=== PATIENT | female | born 1980 | race Caucasian/White ===

== ENCOUNTER 2025-07-08 17:33 | Inpatient (IN) ==
[2025-07-08] MEDS ORDERED: IOPAMIDOL 100 ML BOTTLE IV ONE (17:34)
[2025-07-08 19:02] LABS: Basophils # (Auto) 0.01 K/mcL (0.00-0.30); Basophils % (Auto) 0.1 % (0.0-2.0); Eosinophils # (Auto) 0.03 K/mcL (0.00-0.70); Eosinophils % (Auto) 0.2 % (0.0-7.0); Hematocrit 39.9 % (34.1-44.9); Hemoglobin 13.3 g/dL (11.2-15.7); Lymphocytes # (Auto) 1.10 K/mcL (1.50-4.80); Lymphocytes % (Auto) 7.1 % (15.5-49.0); Mean Corpuscular HGB Conc 33.3 g/dL (31.0-36.0); Monocytes # (Auto) 1.66 K/mcL (0.10-0.90); Monocytes % (Auto) 10.7 % (1.0-12.0); Neutrophils % (Auto) 81.7 % (38.0-78.0); Platelet Count 292 K/mcL (140-440); RBC 4.25 M/mcL (3.59-5.38); WBC 15.5 K/mcL (4.5-11.0)
[2025-07-08 19:05] LABS: INR 1.1 (0.9-1.1); Prothrombin Time 14.8 sec (11.9-14.5)
[2025-07-08 19:16] LABS: ALT/SGPT 63 U/L (<40); AST/SGOT 59 U/L (<32); Albumin 3.5 gm/dL (3.2-5.2); Albumin/Globulin Ratio 1.2 (1.0-2.3); Alkaline Phosphatase 119 U/L (39-117); Anion Gap 13.0 (8.0-16.0); Bilirubin,Total 0.2 mg/dL (0.1-1.0); Blood Urea Nitrogen 13 mg/dL (6-20); Calcium 8.6 mg/dL (8.6-10.4); Carbon Dioxide 19 mmol/L (22-30); Chloride 98 mmol/L (96-108); Globulin 3.0 gm/dL (2.2-3.7); Glucose 96 mg/dL (70-105); Potassium 4.3 mmol/L (3.3-5.1); Sodium 130 mmol/L (133-145)
[2025-07-08 19:32] LABS: Bacteria,Urine 0 /hpf (0); Bilirubin,Urine NEGATIVE (Negative); Color,Urine DK. ORANGE; Ketones,Urine Color Interference mg/dL (Negative); Leukocyte Esterase,Urine Color Interference /uL (Negative); PH,Urine 6.5 (5.0-9.0); Protein,Urine Color Interference mg/dL (Negative); Specific Gravity,Urine 1.010 (1.000-1.035); Urine Budding Yeast Few /hpf
[2025-07-08] MEDS: ACETAMINOPHEN 325 MG TABLET PO ONE (19:35)
[2025-07-08] MEDS: IBUPROFEN 600 MG TABLET PO ONE (20:15)
[2025-07-08] MEDS: PIPERACILLIN SODIUM/TAZOBACTAM 3.375 GM in DEXTROSE 5% IN WATER 50 ML IV ONE (20:16)
[2025-07-08] MEDS: VANCOMYCIN 1,500 MG in 0.9 % SODIUM CHLORIDE 500 ML IV ONE (20:52)
[2025-07-08] MEDS ORDERED: ACETAMINOPHEN 1,000 MG/100 ML BAG IV PRN (21:01)
[2025-07-08] MEDS ORDERED: VANCOMYCIN PER PHARMACY IV SCH (21:15)
[2025-07-08 21:26] LABS: C-Reactive Protein 18.40 mg/dL (0.03-0.80)
[2025-07-08 21:39] LABS: Bilirubin,Urine NEGATIVE (Negative); Color,Urine DK. ORANGE; Glucose,Urine (UA) NEGATIVE (Negative); Ketones,Urine NEGATIVE (Negative); Leukocyte Esterase,Urine NEGATIVE /uL (Negative); PH,Urine 6.5 (5.0-9.0); Protein,Urine NEGATIVE (Negative); Specific Gravity,Urine <= 1.005 (1.000-1.035); Urine Budding Yeast Few /hpf; Urobilinogen,Urine 1.0 mg/dL
[2025-07-08] MEDS: PIPERACILLIN SODIUM/TAZOBACTAM 4.5 GM in DEXTROSE 5% IN WATER 100 ML IV SCH (21:59)
[2025-07-08] MEDS: CEFEPIME 2 GM VIAL IV SCH (22:00)
[2025-07-08] MEDS ORDERED: ZOLPIDEM 5 MG TABLET PO PRN (22:21)
[2025-07-08] MEDS ORDERED: ONDANSETRON 4 MG/2 ML VIAL IV PRN (22:21)
[2025-07-08 23:11] LABS: Thyroid Stimulating Hormone 2.64 uIU/mL (0.27-5.01)
[2025-07-08] MEDS: LACTATED RINGERS 1,000 ML IV SCH (23:25)
[2025-07-08] MEDS: 0.9 % SODIUM CHLORIDE 10 ML SYRINGE IV SCH (23:28)
[2025-07-09 06:55] LABS: Basophils # (Auto) 0.03 K/mcL (0.00-0.30); Basophils % (Auto) 0.3 % (0.0-2.0); Eosinophils # (Auto) 0.20 K/mcL (0.00-0.70); Eosinophils % (Auto) 1.7 % (0.0-7.0); Hematocrit 40.3 % (34.1-44.9); Hemoglobin 13.1 g/dL (11.2-15.7); Lymphocytes # (Auto) 1.88 K/mcL (1.50-4.80); Lymphocytes % (Auto) 16.4 % (15.5-49.0); Mean Corpuscular HGB Conc 32.5 g/dL (31.0-36.0); Monocytes # (Auto) 1.54 K/mcL (0.10-0.90); Monocytes % (Auto) 13.5 % (1.0-12.0); Neutrophils % (Auto) 67.8 % (38.0-78.0); Platelet Count 293 K/mcL (140-440); RBC 4.20 M/mcL (3.59-5.38); WBC 11.4 K/mcL (4.5-11.0)
[2025-07-09 07:07] LABS: ALT/SGPT 51 U/L (<40); AST/SGOT 36 U/L (<32); Albumin 3.3 gm/dL (3.2-5.2); Albumin/Globulin Ratio 1.1 (1.0-2.3); Alkaline Phosphatase 111 U/L (39-117); Anion Gap 13.0 (8.0-16.0); Bilirubin,Direct < 0.2 mg/dL (0-0.3); Bilirubin,Total 0.2 mg/dL (0.1-1.0); Blood Urea Nitrogen 9 mg/dL (6-20); Calcium 8.3 mg/dL (8.6-10.4); Carbon Dioxide 20 mmol/L (22-30); Chloride 105 mmol/L (96-108); Globulin 3.1 gm/dL (2.2-3.7); Glucose 84 mg/dL (70-105); Phosphorous 2.4 mg/dL (2.5-4.5); Potassium 3.8 mmol/L (3.3-5.1); Sodium 138 mmol/L (133-145); Triglycerides 115 mg/dL (<150); Uric Acid 3.0 mg/dL (2.5-8.0)
[2025-07-09 07:27] LABS: C-Reactive Protein 16.10 mg/dL (0.03-0.80)
[2025-07-09] MEDS ORDERED: ACETAMINOPHEN 500 MG TABLET PO PRN (07:38)
[2025-07-09] MEDS: LEVOTHYROXINE 75 MCG TABLET PO SCH (08:19)
[2025-07-09] MEDS: DOCUSATE SODIUM 100 MG CAPSULE PO SCH (08:20)
[2025-07-09] MEDS: ENOXAPARIN 40 MG/0.4 ML SYRINGE SQ SCH (08:20)
[2025-07-09] MEDS: POLYETHYLENE GLYCOL 3350 17 GM PACKET PO SCH (08:20)
[2025-07-09] MEDS ORDERED: ALTEPLASE 2 MG VIAL IV PRN (10:00)
[2025-07-09] MEDS: VANCOMYCIN 1,500 MG in 0.9 % SODIUM CHLORIDE 500 ML IV SCH (10:25)
[2025-07-09] MEDS: NEUTRA PHOS 1 PACKET PO ONE (11:30)
[2025-07-09] MEDS ORDERED: HEPARIN 500 UNIT/5 ML SYRINGE IV ONE (12:49)
[2025-07-09] MEDS ORDERED: LIDOCAINE 1% 20 ML VIAL SQ ONE (12:49)
[2025-07-09] MEDS: PIPERACILLIN SODIUM/TAZOBACTAM 4.5 GM in DEXTROSE 5% IN WATER 100 ML IV SCH (15:59)
[2025-07-09] MEDS: SENNOSIDES 1 TABLET PO SCH (19:02)
[2025-07-09] MEDS: HEPARIN 10 UNITS/ML 5ML FLUSH IV SCH ×2 (19:03→22:25)
[2025-07-09] MEDS: IBUPROFEN 800 MG TABLET PO PRN (19:07)
[2025-07-09] MEDS: MELATONIN 3 MG TABLET PO PRN (19:07)
[2025-07-09] MEDS: 0.9 % SODIUM CHLORIDE 10 ML SYRINGE IV SCH (22:26)
[2025-07-10 06:12] LABS: Basophils # (Auto) 0.05 K/mcL (0.00-0.30); Basophils % (Auto) 0.6 % (0.0-2.0); Eosinophils # (Auto) 0.30 K/mcL (0.00-0.70); Eosinophils % (Auto) 3.4 % (0.0-7.0); Hematocrit 35.7 % (34.1-44.9); Hemoglobin 11.7 g/dL (11.2-15.7); Lymphocytes # (Auto) 2.09 K/mcL (1.50-4.80); Lymphocytes % (Auto) 24.0 % (15.5-49.0); Mean Corpuscular HGB Conc 32.8 g/dL (31.0-36.0); Monocytes # (Auto) 1.21 K/mcL (0.10-0.90); Monocytes % (Auto) 13.9 % (1.0-12.0); Neutrophils % (Auto) 57.9 % (38.0-78.0); Platelet Count 323 K/mcL (140-440); RBC 3.78 M/mcL (3.59-5.38); WBC 8.7 K/mcL (4.5-11.0)
[2025-07-10 06:40] LABS: ALT/SGPT 53 U/L (<40); AST/SGOT 32 U/L (<32); Albumin 3.0 gm/dL (3.2-5.2); Albumin/Globulin Ratio 1.2 (1.0-2.3); Alkaline Phosphatase 110 U/L (39-117); Anion Gap 11.0 (8.0-16.0); Bilirubin,Direct < 0.2 mg/dL (0-0.3); Bilirubin,Total < 0.2 mg/dL (0.1-1.0); Blood Urea Nitrogen 8 mg/dL (6-20); Calcium 7.8 mg/dL (8.6-10.4); Carbon Dioxide 24 mmol/L (22-30); Chloride 106 mmol/L (96-108); Globulin 2.5 gm/dL (2.2-3.7); Glucose 82 mg/dL (70-105); Phosphorous 3.2 mg/dL (2.5-4.5); Potassium 3.8 mmol/L (3.3-5.1); Sodium 141 mmol/L (133-145); Triglycerides 118 mg/dL (<150); Uric Acid 2.1 mg/dL (2.5-8.0)
[2025-07-10 06:43] LABS: C-Reactive Protein 8.27 mg/dL (0.03-0.80)
[2025-07-10] MEDS: 0.9 % SODIUM CHLORIDE 10 ML SYRINGE IV PRN (22:55)
[2025-07-11 07:14] LABS: ALT/SGPT 47 U/L (<40); AST/SGOT 22 U/L (<32); Albumin 3.1 gm/dL (3.2-5.2); Albumin/Globulin Ratio 1.2 (1.0-2.3); Alkaline Phosphatase 112 U/L (39-117); Anion Gap 10.0 (8.0-16.0); Bilirubin,Direct < 0.2 mg/dL (0-0.3); Bilirubin,Total 0.3 mg/dL (0.1-1.0); Blood Urea Nitrogen 9 mg/dL (6-20); Calcium 8.4 mg/dL (8.6-10.4); Carbon Dioxide 25 mmol/L (22-30); Chloride 105 mmol/L (96-108); Globulin 2.6 gm/dL (2.2-3.7); Glucose 74 mg/dL (70-105); Phosphorous 3.9 mg/dL (2.5-4.5); Potassium 3.5 mmol/L (3.3-5.1); Sodium 140 mmol/L (133-145); Triglycerides 114 mg/dL (<150); Uric Acid 2.9 mg/dL (2.5-8.0)
[2025-07-11] MEDS: buPROPion 150 MG TAB.XL.24H PO SCH (12:43)
[2025-07-11] MEDS ORDERED: 0.9 % SODIUM CHLORIDE 10 ML SYRINGE IV PRN (12:53)
[2025-07-11] MEDS ORDERED: 0.9 % SODIUM CHLORIDE 10 ML SYRINGE IV SCH (21:00)
[2025-07-11] MEDS ORDERED: HEPARIN 10 UNITS/ML 5ML FLUSH IV SCH ×2 (21:00)
== END 2025-07-11 13:02 | disposition home or self-care (01) | DRG 872 ==
LOC: ED 17:33 → MEDSUR 22:17
PROVIDERS: ADMIT Student in an Organized Health Care Education/Training Program; ATTEND Internal Medicine